=== PATIENT | female | born 2005 | race Caucasian/White ===

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

== ENCOUNTER 2025-06-20 23:57 | Emergency (ER) | payer SELFPAY ==
[~2025-06-20] VITALS: Ht 175.3 cm; Wt 90.0 kg
[2025-06-21] VITALS: BP 131/79; PULSE 80; RESP 18; TEMP 97; O2SAT 99
== END 2025-06-21 01:02 | disposition left against medical advice (07) ==
LOC: ER 23:58
DX: G43.909 Migraine, unspecified, not intractable, without status migrainosus (principal); Z53.21 Procedure and treatment not carried out due to patient leaving prior to being seen by health care provider

== ENCOUNTER 2025-07-02 20:07 | Emergency (ER) | payer SELFPAY ==
[~2025-07-02] VITALS: Ht 175.3 cm; Wt 91.0 kg
[2025-07-02 20:12] VITALS: TEMP 98
--- NOTE | 2025-07-02 20:49 | Physician Documentation ---
History of Present Illness ~ Chief Complaint: Urinary Symptoms Stated Complaint: KIDNEY PAIN Time Seen by MD: 20:44 OK to notify your PCP?: Yes Source: patient, RN/MD, RN notes reviewed, old records Mode of Arrival: POV Exam Limitations: no limitations HPI 16 This patient is a 20 y/o female presenting to ED with cheif complaint of urinary symptoms. Patient states that over the past 5 days she has had worsening lower abdominal cramping, and increased burning/frequency with urination. She also reports subjective fever and chills at home, nausea, and vomiting,. She states that she was seen in clinic today and had a UA which confirmed she has a UTI. She states that she has had UTI's in the past, however they have never been this painful. Medication Reconciliation Allergies: Coded Allergies: No Known Allergies (Unverified , 07/02/25) Past Medical History Past Medical History: No Pertinent History Past Surgical History: no surgical history Smoking Status: Unknown if ever smoked Alcohol Use: None Drug Use: marijuana Lives with: Mother Lives In: Home Review of Systems All Other Systems at this time: Reviewed and Negative ROS As stated above in the HPI, otherwise all systems are reviewed and negative. Physical Exam Vital Signs: RN Vital Signs have been reviewed: Yes, Temperature: 98.0, Source: Oral, Heart Rate: 98, Respiratory Rate: 16, BP: 134/45, Pulse Oximetry: 99, Weight: 91.000 Physical Exam General: The patient is anxious and uncomfortable appearing. Otherwise she appears well developed, well nourished, nontoxic appearing. Skin: Mitchell, warm and dry with no rashes. HEENT: Head was normocephalic and atraumatic. Eyes - pupils equal, round, reactive to light and accommodation. Extraocular movements were intact. Conjunctivae were nonicteric. The mouth and oropharynx were clear with moist mucous membranes. There were no pharyngeal exudates or erythema. Neck: Supple and nontender. There was no jugular venous distention, lymphadenopathy, thyromegaly or masses. Chest: Clear to auscultation bilaterally without wheezes, rales or rhonchi. No accessory muscle use. No dullness to percussion. Heart: Rate regular and rhythmic. S1, S2. No murmurs. Palpation of the chest wall was normal. No rubs or thrills. Abdomen: Soft, nontender and nondistended. Positive bowel sounds. No guarding or rebound. No hepatosplenomegaly or palpable masses. Back: Questionable right CVA tenderness. Extremities: No cyanosis, clubbing or edema. The patient moves all extremities. Pulses were equal and symmetric. Neurologic: Motor and sensation grossly intact. A & O x4. Psychologic: The patient was oriented to person, place and time. Progress Results/Orders Reviewed/noted all lab results: Yes Results/Orders Orders - MARY PHILLIPS MD Monitor (07/02/25 20:46) Saline Lock (07/02/25 20:46) Culture Blood (07/02/25 20:54) Cult Urine + [place] [address] (07/02/25 21:08) Completed Orders - MARY PHILLIPS MD Phenazopyridine Tablet (Pyridium Tablet) (07/02/25 20:45) Cbc/Diff (07/02/25 20:46) Hcg, Ur Ql (07/02/25 20:46) Drug Screen, Urine (07/02/25 20:46) Normal Saline 1000ml (0.9% Sodium Chlori (07/02/25 20:50) BMP (07/02/25 20:46) Ceftriaxone/N1a-Soixfdro 1gm (Rocephin 1 (07/02/25 20:50) Procalcitonin (07/02/25 20:54) Lacticsepsis (07/02/25 20:54) Ua W/Microscopic, Cult If Ind (07/02/25 20:24) Fosfomycin Tromethamine Packet (Monurol (07/02/25 22:30) Vital Signs 07/02/25 07/02/25 07/02/25 20:12 20:37 22:48 Temp 98.0 Pulse 98 91 Resp 20 16 22 B/P (MAP) 134/45 128/61 (83) Pulse Ox 99 97 O2 Flow Rate 0 Laboratory Tests Test 07/02/25 20:24 07/02/25 21:08 Urine Specimen Description Cln catch midstream Urine Color Yellow Urine Clarity Cloudy Urine pH 7.0 Urine Specific Roe 1.015 Urine Protein 30 H Urine Glucose (UA) Negative Urine Ketones Negative Urine Occult Blood Trace-intact Urine Nitrite Positive H Urine Bilirubin Negative Urine Urobilinogen 0.2 Urine Leukocyte Esterase Moderate H Urine RBC 0-2 Urine WBC 5-10 H Urine Squamous Epithelial Cells None seen Urine Bacteria 3+ Urine Culture Indicated Indicated Volume Urine Centrifuged 10 ml Urine HCG, Qualitative Negative Urine Comment Urine Opiates Screen Negative Urine Methadone Screen Negative Urine Fentanyl Screen Negative Urine Barbiturates Screen Negative Urine Phencyclidine Screen Negative Urine Amphetamines Screen Negative Urine Benzodiazepines Screen Negative Urine Cocaine Screen Negative Urine Cannabinoids Screen Positive Drug Screen Comment White Blood Count 19.0 H Red Blood Count 4.48 Hemoglobin 13.6 Hematocrit 39.4 Mean Corpuscular Volume 87.9 Mean Corpuscular Hemoglobin 30.4 Mean Corpuscular Hemoglobin Concent 34.6 Red Cell Distribution Width 12.5 Platelet Count 241 Mean Platelet Volume 7.6 Neutrophils (%) (Auto) 79.5 H Lymphocytes (%) (Auto) 9.6 L Monocytes (%) (Auto) 10.6 Eosinophils (%) (Auto) 0 Basophils (%) (Auto) 0.3 Neutrophils # (Auto) 15.1 H Lymphocytes # (Auto) 1.8 Monocytes # (Auto) 2.0 H Eosinophils # (Auto) 0.0 Basophils # (Auto) 0.1 CBC Comment Sodium Level 140 Potassium Level 3.5 Chloride Level 102 Carbon Dioxide Level 27.9 Anion Gap 10 Blood Urea Nitrogen 12 Creatinine 0.91 H Estimated GFR/1.73 m2 79 BUN/Creatinine Ratio 13.2 Glucose Level 112 H Lactic Acid Level 1.8 Calcium Level 8.9 Albumin 3.8 Procalcitonin 0.21 Chemistry Comments Microbiology Date/Time Source Procedure Growth Status 07/02/25 21:08 Urine Clean Catch Midstream Urine Culture - Preliminary Culture received. Resulted 07/02/25 21:08 Blood Arm Left Blood Culture - Preliminary NEGATIVE (LESS THAN 24 HOURS) Resulted Re-Evaluation Re-Evaluation : Re-Evaluation: Improved Progress Patient was seen and examined. Patient is given reassurance. Patient was in severe pain when she arrived. She was given Pyridium afterwards laboratory work was obtained she received 2 L of fluid and Rocephin. Blood cultures was obtained. Patient was going to received fosfomycin due to possible poor compliance however the medication was not available. Laboratory work was obtained she has flank pain bilaterally she says she is vomiting but there was no tachycardia no pyrexia. Her white count is concerning at 19 with a left shift of 79.5 chemistries are within normal limits but procalcitonin is negative at 0.21 and a lactic acid also negative at 1.8. Patient's tox screen is positive for marijuana in the urinalysis is consistent with a UTI with positive nitrates moderate leukocyte esterase 0-2 RBCs 5-10 WBCs and 3+ bacteria. Patient is doing much better with intervention prescription was written for the patient and she was discharged home. No prescription was written for the patient because she had a prescription written earlier in the day by her primary care physician. Patient was warned however with the nausea vomiting and borderline flank pain that has she is unable to keep her medicines down she needs to return to the ER for admission. Patient was offered admission but she refused. Medical Decision Making Additional info obtained from: old records Urinary Diff Dx:Considerations: Include: Cholelithiasis, Choleangitis, DJD, Impaction, Musculoskeletal pain, Ovarian torsion, Pancreatitis, PID, Post-Op complication, Pyelonephritis, Urinary Obstruction, Urolithiasis, Urinary retention, UTI, Vaginitis, Other Departure Time of Disposition: 22:28 Disposition: HOME / SELF CARE / HOMELESS Impression: Primary Impression: UTI (urinary tract infection) Qualified Codes: N39.0 - Urinary tract infection, site not specified Additional Impression: Pyelonephritis Condition: Stable Discharge Instructions: Urinary Tract Infection, Adult Additional Instructions: If you vomit and are unable to keep down medications, please return for hospitalization. Referrals: NO PRIMARY CARE PROVIDER (PCP) Education Educated: Patient Educated regarding: diagnosis, prognosis, need for follow up, other Signature Scribe Signature: Scribed for Mary Phillips MD by Camryn Rosario. 07/02/25 21:22 Attestation: The note accurately reflects work and decisions made by me.Mary Phillips MD 07/02/25 20:49 MARY PHILLIPS MD Jul 02, 2025 20:49
[2025-07-02 20:54] LABS: LEUKOCYTE ESTERASE ,URINE MODERATE (Neg); NITRITES, URINE POSITIVE (Neg); OCCULT BLOOD,URINE TRACE-INTACT (Neg)
[2025-07-02 21:03] LABS: UA COLLECTION TYPE CLN CATCH MIDSTREAM; URINE HCG NEGATIVE (NEG)
[2025-07-02 21:08] LABS: SQUAMOUS EPITHELIAL CELL,UR NONE SEEN /LPF (FEW)
[2025-07-02 21:13] LABS: URINE AMPHETAMINE SCREEN NEGATIVE (Neg); URINE BARBITUATE SCREEN NEGATIVE (Neg); URINE BENZODIAZEPINES SCREEN NEGATIVE (Neg); URINE CANNABINOID SCREEN POSITIVE (Neg); URINE COCAINE SCREEN NEGATIVE (Neg); URINE METHADONE SCREEN NEGATIVE (Neg); URINE OPIATE SCREEN NEGATIVE (Neg); URINE PHENCYCLIDINE SCREEN NEGATIVE (Neg)
[2025-07-02 21:20] LABS: MEAN PLATELET VOLUME 7.6 FL (7.4-10.4); RED CELL DISTRIBUTION WIDTH 12.5 % (11.5-14.5)
[2025-07-02 21:26] LABS: CREATININE 0.91 MG/DL (0.40-0.90); TOTAL CARBON DIOXIDE 27.9 MMOL/L (24-32); eCRCL 103 ML/MIN; eGFR 79 ML/MIN
[2025-07-02] MEDS: CefTRIAXone/D5W-Rocephin 1gm 50 ML IV ONE (21:28)
[2025-07-02] MEDS: phenazopyridine 100mg tablet PO ONE (21:28)
[2025-07-02] MEDS: normal saline 1000ML IV soln IVB ONE (21:28)
[2025-07-02] MEDS: FOSFOMYCIN TROMETHAMINE 3 GM PACKET PO ONE (22:30)
[2025-07-02 22:48] VITALS: BP 128/61; PULSE 91; RESP 22; O2SAT 97
== END 2025-07-03 00:28 | disposition home or self-care (01) ==
LOC: ER 20:08
DX: N39.0 Urinary tract infection, site not specified (principal); N12 Tubulo-interstitial nephritis, not specified as acute or chronic; R11.2 Nausea with vomiting, unspecified; R50.9 Fever, unspecified; F12.90 Cannabis use, unspecified, uncomplicated; Z79.899 Other long term (current) drug therapy
CPT/HCPCS: 36415; 80048; 80305; 81001; 81025; 83605; 84145; 85025; 87040; 87077; 87088; 87186; 96365; 99284; J0696; J7030